=== PATIENT | female | born 1995 | race Two or more races ===

== ENCOUNTER 2021-04-26 11:15 | Emergency (ER) | payer SELFPAY ==
[~2021-04-26] VITALS: Ht 152.4 cm; Wt 79.4 kg
[2021-04-26] MEDS ORDERED: ONDANSETRON HCL 4 MG ORAL DISINTEGRATING TAB PO STA (11:37)
[2021-04-26] MEDS ORDERED: PEPCID20 MG PO (13:08)
[2021-04-26] MEDS ORDERED: ONDANSETRON ODT4 MG PO (13:08)
[2021-04-26] MEDS ORDERED: TAMIFLU75 MG PO (13:19)
== END 2021-04-26 13:29 | disposition home or self-care (01) ==
LOC: EDBD 11:15 → FSED 11:24
DX: J10.1 Influenza due to other identified influenza virus with other respiratory manifestations (principal); R11.2 Nausea with vomiting, unspecified; R10.30 Lower abdominal pain, unspecified; R51.9 Headache, unspecified
CPT/HCPCS: 74176; 99283; Q0162